=== PATIENT | female | born 1975 | race Caucasian/White ===

== ENCOUNTER → 2017-06-27 | Outpatient (CLI) | payer BC | END | disposition home or self-care (01) | LOC: LAB 12:44 | PROVIDERS: ATTEND Nurse Practitioner Family | DX: Z13.220 Encounter for screening for lipoid disorders (principal); R53.83 Other fatigue; E78.5 Hyperlipidemia, unspecified; E83.51 Hypocalcemia | CPT/HCPCS: 36415; 80053; 80061; 82306; 84436; 84443; 84481; 85025 ==